=== PATIENT | female | born 1960 | race Caucasian/White ===

== ENCOUNTER 2016-12-20 17:07 | Emergency (ER) | payer OTHER ==
[~2016-12-20] VITALS: Ht 175.3 cm; Wt 85.2 kg
[~2016-12-20 17:07] MED LIST: ENDOCET 5-3251 EACH PO; IBUPROFEN800 MG PO; LISINOPRIL-HCT1 EAC3 PO; MEGESTROL ACETA20 MG PO; SENNA-TIME S T1 EACH PO; SYNTHROID100 MCG PO; TYLENOL EXTRA500 MG PO; VITAMIN D31000 UNIT PO; ZESTRIL,PRINIVI10 MG PO; [UNRECOGNIZED DRUG - OTHER]
[2016-12-20 17:53] LABS: HEMATOCRIT 41.9 % (36.0-46.0); MCH 30.1 PG (29.0-34.0); MCHC 33.9 G/DL (30.0-36.0); MEAN PLAT.VOLUME 10.8 uM^3 (9.5-12.4); PLATELET COUNT 352 K/uL (156-360); RBC DIS.WIDTH-CV 11.5 % (11.8-14.6); RBC DIS.WIDTH-SD 36.8 % (39-53); RED BLOOD COUNT 4.71 M/uL (3.80-5.20); WHITE BLOOD COUNT 9.2 K/uL (4.1-10.2)
[2016-12-20 18:02] LABS: CHLORIDE 104 mEq/L (99-109); POTASSIUM 3.7 mEq/L (3.7-5.4); SODIUM 143 mEq/L (136-147)
[2016-12-20 18:05] LABS: GLUCOSE 127 mg/dL (70-99)
[2016-12-20 18:06] LABS: ANION GAP 17 MEQ/L (2-14)
[2016-12-20 18:07] LABS: TOTAL BILIRUBIN 0.8 mg/dL (0.0-1.0)
[2016-12-20 18:08] LABS: ALKALINE PHOSPHATASE 71 IU/L (3-129); GFR ESTIMATE (CALCULATED) > 59 mL/min/
[2016-12-20 18:09] LABS: UREA NITROGEN (BUN) 19 mg/dL (9-23)
[2016-12-20 19:50] VITALS: BP 106/72
== END 2016-12-20 19:51 | disposition home or self-care (01) ==
LOC: EME 17:07
PROVIDERS: Emergency Medicine
DX: T67.5XXA Heat exhaustion, unspecified, initial encounter (principal); X30.XXXA Exposure to excessive natural heat, initial encounter; I10 Essential (primary) hypertension; Z87.442 Personal history of urinary calculi
CPT/HCPCS: 70450; 80053; 85027; 93005; 99281; 99285; J7030